=== PATIENT | female | born 1970 ===

== ENCOUNTER 2017-04-29 06:03 | Day surgery (SDC) | payer OTHER ==
[2017-04-27 10:26] VITALS: BMI 33.3
[2017-04-29 06:46] LABS: BASO # 0.03 K/mm3 (0.0-2.0); BASO % 0.5 % (0.0-3.0); EOS # 0.1 (0.0-0.7); GRAN # 2.77 (1.4-6.5); GRAN % 50.2 % (50.0-68.0); HEMOGLOBIN 12.2 g/dL (12.0-16.0); LYMPH # 2.2 (1.2-3.4); LYMPH % 39.9 % (22.0-35.0); MEAN CELL VOLUME 77.1 fl (80.0-105.0); MEAN CORPUSCULAR HEMOGLOBIN 25.4 pg (25.0-35.0); MEAN PLATELET VOLUME 10.1 fl (7.0-11.0); MONO # 0.4 (0.1-0.6); MONO % 7.4 % (1.0-6.0); RBC 4.8 10^6/uL (3.5-6.1); RED CELL DISTRIBUTION WIDTH 15.1 % (11.5-14.5); WHITE BLOOD COUNT 5.5 10^3/ul (4.5-11.0)
[2017-04-29 07:02] LABS: PROTHROMBIN TIME 11.9 SECONDS (9.4-12.5)
[2017-04-29 07:03] LABS: INR 1.03 (0.93-1.08); PARTIAL THROMBOPLASTIN TIME 33.4 Seconds (25.1-36.5)
[2017-04-29 07:07] LABS: BLOOD UREA NITROGEN 12 mg/dL (7-21); CALCIUM 10.1 mg/dL (8.4-10.5); GFR AFRICAN-AMERICAN > 60; GFR NON-AFRICAN AMERICAN > 60
[2017-04-29 07:09] VITALS: RESP 18
[2017-04-29] MEDS ORDERED: Lidocaine 2% Inj (20ml) ONE (08:24)
[2017-04-29] MEDS ORDERED: Verapamil 2 ML ONE (08:24)
[2017-04-29] MEDS ORDERED: Iohexol 350mgl/ml 50 ML ONE (08:24)
[2017-04-29] MEDS ORDERED: HEPARIN SODIUM/NS 0 ML IV ONE (08:25)
[2017-04-29] MEDS ORDERED: Nitroglycerin 50mg in D5W 0 MG/0 ML BOTTLE IV ONE (08:25)
[2017-04-29] MEDS ORDERED: HEPARIN SODIUM/NS 2,000 ML IV ONE (08:35)
[2017-04-29] MEDS ORDERED: Adenosine 90 mg/30mL IV ONE (08:40)
[2017-04-29] MEDS ORDERED: Midazolam 2 MG/2 ML VIAL ONE ×3 (08:46→09:12)
[2017-04-29] MEDS ORDERED: DiphenhydrAMINE 50 mg/ml Inj ONE (09:12)
[2017-04-29] MEDS ORDERED: Bacitracin 500 Units/gm Oint Foilpak UD TOP ONE (09:49)
[2017-04-29] MEDS ORDERED: Sodium Chloride 0.9% 1,000 ML IV SCH (10:00)
[2017-04-29 10:46] VITALS: TEMP 98.3
[2017-04-29 10:48] VITALS: O2SAT 99
--- NOTE | 2017-04-29 11:21 | CARD ---
APPROVED REPORT EKG Measurement Heart [id number] IN [id number] <Conclusion> Normal sinus rhythm Nonspecific T wave abnormality
[2017-04-29] MEDS ORDERED: Bacitracin 500 Units/gm Oint Foilpak UD ONE (14:18)
[2017-04-29 14:47] VITALS: BP 156/74; PULSE 100
--- NOTE | 2017-04-29 19:12 | CARDCATH ---
PROCEDURE DATE: 04/29/2017 INDICATION: Ms. Zapata is a 46-year-old female with history of hypertension, dyslipidemia, metabolic syndrome who was recently admitted to [facility] Emergency Room for evaluation of chest pain. He was subsequently discharged and underwent a nuclear stress test, which showed anteroapical ischemia. She was having symptoms of dyspnea on exertion and intermittent atypical chest pains and therefore was brought to the brine room laborer for evaluation of CAD. PROCEDURES PERFORMED: Left heart catheterization with selective left and right coronary angiogram, left ventriculogram, a 6-Latvian right femoral arterial access, Mynx closure device for hemostasis, FFR of mid LAD, FFR was physiologically nonsignificant at 0.82. ANGIOGRAPHIC FINDINGS: Left main is a large-sized vessel, bifurcates into LAD and left circumflex coronary artery. LAD is a large-sized vessel, gives off two medium-sized diagonal branches. The proximal LAD has a myocardial bridge with a mid LAD long diffuse 50% lesion. FFR was done of this patient which was physiologically nonsignificant at 0.82. Left circumflex coronary artery is a large-sized vessel, which gives off obtuse marginal branch, left dominant system. RCA is a medium-sized vessel, nondominant, gives off the RV branch and SA rhonda branches. Left ventricular ejection fraction is 45% to 50%, EDP 24 mmHg. IMPRESSION: [id number] left anterior descending myocardial bridge, physiologically nonsignificant mid left anterior descending, 50% stenosis. Fractional flow reserve was 0.82, low normal ejection fraction. RECOMMENDATIONS: Guideline diuretic therapy for nonobstructive coronary artery disease and congestive heart failure. Keep the patient on aspirin, statin, beta-blockers and PATRICK inhibitors. Thank you, Dr. Mora for letting me participate in the care of your patient. Chase Almeida MD cc: Rony Mora MD
== END 2017-04-29 15:30 | disposition home or self-care (01) ==
LOC: CATH 06:03
PROVIDERS: ATTEND Internal Medicine Interventional Cardiology
DX: R07.89 Other chest pain (principal); Q24.5 Malformation of coronary vessels; E78.5 Hyperlipidemia, unspecified; I10 Essential (primary) hypertension
CPT/HCPCS: 80048; 85025; 85610; 85730; 86850; 86900; 93005; 93458; 93571; 99152; 99153; C1760; C1769 ×2; C1887 ×3; C1894; C2629; J0153; J1200; J1644 ×2; J2250; J3010; J7040 ×2; Q9967

== ENCOUNTER 2017-09-01 09:53 | Day surgery (SDC) | payer OTHER ==
[2017-08-30 21:26] VITALS: BMI 33.0
[2017-09-01] MEDS ORDERED: Lidocaine 2% Inj (20ml) ONE (10:48)
[2017-09-01] MEDS ORDERED: Iodixanol 320 MG/ML 200 ML BOTTLE IV ONE (10:49)
[2017-09-01] MEDS ORDERED: Midazolam 2 MG/2 ML VIAL ONE ×2 (11:53→12:08)
[2017-09-01] MEDS ORDERED: Bacitracin 500 Units/gm Oint Foilpak UD TOP ONE (12:31)
--- NOTE | 2017-09-01 17:06 | CARDCATH ---
PROCEDURE DATE: 09/01/2017 INDICATIONS: Evi Zapata is a 47-year-old female who presented to [facility] with worsening chest pain, shortness of breath and heart failure exacerbation. She was transferred for evaluation of worsening CHF, nonresponsive to medical management. PROCEDURE PERFORMED: Complete heart catheterization with right and left heart catheterization, right heart catheterization with hemodynamics and saturations, left heart catheterization with selective left and right coronary angiogram via 6-Upper Sorbian right femoral arterial access and 7-Upper Sorbian right femoral venous access, Mynx closure device for hemostasis. ANGIOGRAPHIC FINDINGS: Left main is a large-sized vessel, bifurcates into LAD and circumflex. LAD is a large-sized vessel, it gives off 2 diagonal branches. Diagonal has a moderate 55% stenosis, nonobstructive disease. LAD has mid 45% to 50% stenosis, nonobstructive disease. Left circumflex is a large-sized vessel, runs in the AV groove, gives off obtuse marginal branch, nonobstructive, RCA small and nondominant, left-side dominant circulation, ejection fraction 15% to 20%. HEMODYNAMICS: Left ventricular end-diastolic pressure was 25 mmHg. RA pressure 17/23 with a mean of 15, RV 48/-3 with RVEDP of 15. PA pressure is 56/16 with a mean of 36. Cardiac output using the thermodilution method was calculated to be 3.4 L and a cardiac index of 1.9 L/min/m2 area. IMPRESSION: Nonischemic dilated cardiomyopathy, ejection fraction 15% to 20%; elevated filling pressures; [id number] pulmonary hypertension. RECOMMENDATIONS: The patient to be transferred back to [place] in 4 hours. Guideline-directed therapy for cardiomyopathy and elevated filling pressures. We will recommend to initiate the patient on milrinone therapy for 48 hours. Keep the patient on low-dose beta-blockers, Vinny inhibitors along with diuretic therapy. Consider initiation of sildenafil . Chase Almeida MD
[2017-09-01 17:33] VITALS: BP 125/93; PULSE 104; RESP 19; TEMP 98.8
== END 2017-09-01 18:53 ==
LOC: CATH 09:53 → 2RSO 12:59 → CATH 18:53
PROVIDERS: ATTEND Internal Medicine Interventional Cardiology
DX: I42.0 Dilated cardiomyopathy (principal); I25.10 Atherosclerotic heart disease of native coronary artery without angina pectoris; I27.20 Pulmonary hypertension, unspecified; I50.9 Heart failure, unspecified
CPT/HCPCS: 82948; 93460; 99152; 99153; C1769; C1894; C2629; J1644 ×2; J2250; J3010; J7040; Q9966